=== PATIENT | male | born 1955 | race Caucasian/White ===

== ENCOUNTER 2018-04-14 10:35 | Emergency (ER) | payer BC ==
[2018-04-14] MEDS ORDERED: Sodium Chloride 0.9% 10 ML Syringe FLUSH PRN (11:06)
--- NOTE | 2018-04-14 20:23 | EDM.PDOC ---
ED HPI GENERAL MEDICAL PROBLEM - General Chief Complaint: General Stated Complaint: Clot in Urine Time Seen by Provider: 04/14/18 10:45 Source of Information: Reports: Patient, Family History Limitations: Reports: No Limitations - History of Present Illness INITIAL COMMENTS - FREE TEXT/NARRATIVE: Patient is a 62 year old man status post lung resection in right upper lung in 1998 in [place], [place] for a lung cancer. He has had no recurrence and he stopped smoking then. In the past week he has had blood in his urine and today he passed a clot which has scared him a lot. He came to the ED very anxious and hyperventilating. He has a little left neck and shoulder pain but no other pain and no dysuria. No fever or chills and no abdominal pain. He has been told that he may have kidney stones. No other complaints. Duration: Week(s): (1), Getting Worse Location: Reports: Abdomen Quality: Reports: Same as Previous Episode Severity: Moderate Improves with: Reports: None Worsens with: Reports: None Context: Reports: Other (Kidney stone history.) Associated Symptoms: Reports: No Other Symptoms Neck Pain Pain Score (Numeric/FACES): 4 - Related Data Allergies Allergy/AdvReac Type Severity Reaction Status Date / Time No Known Allergies Allergy Verified 04/14/18 10:45 Home Meds: Home Meds Hydrochlorothiazide 25 mg PO DAILY 04/14/18 [History] Lisinopril [Prinivil] 40 mg PO DAILY 04/14/18 [History] Past Medical History Cardiovascular History: Reports: Hypertension Musculoskeletal History: Reports: Fracture Oncologic (Cancer) History: Reports: Lung - Past Surgical History Oncologic Surgical History: Reports: Lobectomy Social & Family History - Tobacco Use Smoking Status *Q: Former Smoker Years of Tobacco use: 20 Packs/Tins Daily: 0.5 Used Tobacco, but Quit: Yes Month/Year Tobacco Last Used: 1998 - Recreational Drug Use Recreational Drug Use: No ED ROS GENERAL - Review of Systems Review Of Systems: See Below Constitutional: Reports: Other (Anxious and hyperventilating.) HEENT: Reports: No Symptoms Respiratory: Reports: No Symptoms Cardiovascular: Reports: No Symptoms Endocrine: Reports: No Symptoms GI/Abdominal: Reports: No Symptoms : Reports: Hematuria Musculoskeletal: Reports: Neck Pain Skin: Reports: No Symptoms Neurological: Reports: No Symptoms Psychiatric: Reports: No Symptoms Hematologic/Lymphatic: Reports: No Symptoms Immunologic: Reports: No Symptoms ED EXAM, GENERAL - Physical Exam Exam: See Below Exam Limited By: No Limitations General Appearance: Alert, WD/WN, No Apparent Distress Eye Exam: Bilateral Eye: EOMI, Normal Fundi, Normal Inspection, PERRL Ears: Normal External Exam, Normal Canal, Hearing Grossly Normal, Normal TMs Ear Exam: Bilateral Ear: Auricle Normal, Canal Normal, TM normal Nose: Normal Inspection, Normal Mucosa, No Blood Throat/Mouth: Normal Inspection, Normal Lips, Normal Teeth, Normal Gums, Normal Oropharynx, Normal Voice, No Airway Compromise Head: Atraumatic, Normocephalic Neck: Normal Inspection, Supple, Non-Tender, Full Range of Motion Respiratory/Chest: No Respiratory Distress, Lungs Clear, Normal Breath Sounds, No Accessory Muscle Use, Chest Non-Tender Cardiovascular: Normal Peripheral Pulses, Regular Rate, Rhythm, No Edema, No Gallop, No JVD, No Murmur, No Rub GI/Abdominal: Normal Bowel Sounds, Soft, Non-Tender, No Organomegaly, No Distention, No Abnormal Bruit, No Mass (Male) Exam: Deferred Back Exam: Normal Inspection, Full Range of Motion, NT Extremities: Normal Inspection, Normal Range of Motion, Non-Tender, Normal Capillary Refill, No Pedal Edema Neurological: Alert, Oriented, CN II-XII Intact, Normal Cognition, Normal Gait, Normal Reflexes, No Motor/Sensory Deficits Psychiatric: Anxious Skin Exam: Warm, Dry, Intact, Normal Color, No Rash Lymphatic: No Adenopathy EKG INTERPRETATION EKG Date: 04/14/18 Rhythm: NSR [place]: Normal P-Wave: Present QRS: Normal ST-T: Normal QT: Normal Comparison: NA - No Prior EKG Course - Vital Signs Text/Narrative:: His CT of the Abdomen and Pelvis showed a 3.5 cm bladder wall mass consistent with a bladder cancer. He will see [facility] on Monday per Dr. Kirkpatrick the Urologist cable television technician. A cystoscopy and biopsy or removal will be done at that time. He will push fluids and cranberry juice and will return the to ED if needed before going to [facility]. He will continue his other medication. Last Recorded V/S: Last Vital Signs Temp 36.0 C 04/14/18 10:38 Pulse 82 04/14/18 14:00 Resp 18 04/14/18 14:00 BP 143/81 H 04/14/18 14:00 Pulse Ox 98 04/14/18 14:00 - Orders/Labs/Meds Orders: Active Orders 24 hr Category Date Time Status EKG Documentation Completion [RC] ASDIRECTED Care 04/14/18 11:02 Active Abdomen Pelvis wo Cont [CT] Stat Exams 04/14/18 11:05 Taken CXR [Chest 1V Frontal] [CR] Stat Exams 04/14/18 11:04 Taken UA W/MICROSCOPIC [URIN] Stat Lab 04/14/18 11:21 Ordered Saline Lock Insert [OM.PC] Routine Oth 04/14/18 11:06 Ordered Labs: Laboratory Tests 04/14/18 04/14/18 04/14/18 Range/Units 11:10 11:10 11:10 WBC 8.5 (4.0-11.0) K/uL RBC 4.91 (4.50-6.50) M/uL Hgb 14.3 (13.0-18.0) g/dL Hct 39.5 L (40.0-54.0) % MCV 80 (76-96) fL MCH 29.1 (27.0-32.0) pg MCHC 36.2 H (31.0-35.0) g/dL RDW 13.1 (11.0-16.0) % Plt Count 225 (150-400) K/uL MPV 9.6 (6.0-10.0) fL Neut % (Auto) 83.0 H (45.0-70.0) % Lymph % (Auto) 9.9 L (20.0-40.0) % [place] % (Auto) 6.7 (3.0-10.0) % Eos % (Auto) 0.2 L (1.0-5.0) % Baso % (Auto) 0.2 (0.0-0.5) % Neut # (Auto) 7.07 (2.00-7.50) K/uL Lymph # (Auto) 0.84 L (1.50-4.00) K/uL [place] # (Auto) 0.57 (0.20-0.80) K/uL Eos # (Auto) 0.02 L (0.04-0.40) K/uL Baso # (Auto) 0.02 (0.02-0.10) K/uL D-Dimer, Quantitative < 100 (0-400) ng/mL Sodium 138 (136-145) mmol/L Potassium 3.5 (3.5-5.1) mmol/L Chloride 102 (98-107) mmol/L Carbon Dioxide 24.5 (21.0-32.0) mmol/L Anion Gap 15.0 (5.0-15.0) mmol/L BUN 21 (8-26) mg/dL Creatinine 1.12 (0.70-1.30) mg/dL Est Cr Clr Drug Dosing TNP Estimated GFR (MDRD) > 60 (>60) MLS/MIN BUN/Creatinine Ratio 18.8 (6-25) Glucose 109 H (74-100) mg/dL Calcium 9.3 (8.5-10.1) mg/dL Total Bilirubin 0.6 (0.0-1.0) mg/dL AST 18 (15-37) U/L ALT 27 (12-78) U/L Alkaline Phosphatase 80 (46-116) U/L Troponin I (0.000-0.060) ng/mL Total Protein 7.5 (6.4-8.2) g/dL Albumin 4.0 (3.4-5.0) g/dL Globulin 3.5 (2.2-4.2) g/dL Albumin/Globulin Ratio 1.1 (0.8-2.0) Urine Color Urine Appearance (CLEAR) Urine pH (5.0-8.0) Ur Specific [place] (1.003-1.030) Urine Protein (NEGATIVE) mg/dL Urine Glucose (UA) (NEGATIVE) mg/dL Urine Ketones (NEGATIVE) mg/dL Urine Occult Blood (NEGATIVE) Urine Nitrite (NEGATIVE) Urine Bilirubin (NEGATIVE) Urine Urobilinogen (0.2-1.0) E.U./dL Ur Leukocyte Esterase (NEGATIVE) Urine RBC /HPF Urine WBC /HPF Urine WBC Clumps /HPF Ur Renal Epithelial Cell /HPF Urine Bacteria /HPF 04/14/18 04/14/18 Range/Units 11:10 11:21 WBC (4.0-11.0) K/uL RBC (4.50-6.50) M/uL Hgb (13.0-18.0) g/dL Hct (40.0-54.0) % MCV (76-96) fL MCH (27.0-32.0) pg MCHC (31.0-35.0) g/dL RDW (11.0-16.0) % Plt Count (150-400) K/uL MPV (6.0-10.0) fL Neut % (Auto) (45.0-70.0) % Lymph % (Auto) (20.0-40.0) % [place] % (Auto) (3.0-10.0) % Eos % (Auto) (1.0-5.0) % Baso % (Auto) (0.0-0.5) % Neut # (Auto) (2.00-7.50) K/uL Lymph # (Auto) (1.50-4.00) K/uL [place] # (Auto) (0.20-0.80) K/uL Eos # (Auto) (0.04-0.40) K/uL Baso # (Auto) (0.02-0.10) K/uL D-Dimer, Quantitative (0-400) ng/mL Sodium (136-145) mmol/L Potassium (3.5-5.1) mmol/L Chloride (98-107) mmol/L Carbon Dioxide (21.0-32.0) mmol/L Anion Gap (5.0-15.0) mmol/L BUN (8-26) mg/dL Creatinine (0.70-1.30) mg/dL Est Cr Clr Drug Dosing Estimated GFR (MDRD) (>60) MLS/MIN BUN/Creatinine Ratio (6-25) Glucose (74-100) mg/dL Calcium (8.5-10.1) mg/dL Total Bilirubin (0.0-1.0) mg/dL AST (15-37) U/L ALT (12-78) U/L Alkaline Phosphatase (46-116) U/L Troponin I < 0.017 (0.000-0.060) ng/mL Total Protein (6.4-8.2) g/dL Albumin (3.4-5.0) g/dL Globulin (2.2-4.2) g/dL Albumin/Globulin Ratio (0.8-2.0) Urine Color Red Urine Appearance Cloudy (CLEAR) Urine pH 7.5 (5.0-8.0) Ur Specific [place] 1.015 (1.003-1.030) Urine Protein >=300 H (NEGATIVE) mg/dL Urine Glucose (UA) Negative (NEGATIVE) mg/dL Urine Ketones Negative (NEGATIVE) mg/dL Urine Occult Blood Large H (NEGATIVE) Urine Nitrite Negative (NEGATIVE) Urine Bilirubin Negative (NEGATIVE) Urine Urobilinogen 0.2 (0.2-1.0) E.U./dL Ur Leukocyte Esterase Trace H (NEGATIVE) Urine RBC Packed H /HPF Urine WBC 5-10 H /HPF Urine WBC Clumps Few /HPF Ur Renal Epithelial Cell Rare /HPF Urine Bacteria Few /HPF Meds: Medications Discontinued Medications Generic Name Dose Route Start Last Admin Trade Name Freq PRN Reason Stop Dose Admin Sodium Chloride 10 ml 04/14/18 11:06 Saline Flush FLUSH ASDIRECTED PRN Keep Vein Open Departure - Departure Time of Disposition: 14:45 Disposition: Home, Self-Care 01 Condition: Good Clinical Impression: Mass of bladder, Hematuria - Discharge Information Referrals: PCP,None [Primary Care Provider] - Forms: ED Department Discharge Additional Instructions: Call [facility] to get an appointment set up. Phone number is . Dr. Moreno spoke with Dr. Figueroa in urology. Avoid Aspirin. Take it easy until you see Urology. - My Orders Last 24 Hours: My Active Orders 04/14/18 11:02 EKG Documentation Completion [RC] ASDIRECTED 04/14/18 11:04 CXR [Chest 1V Frontal] [CR] Stat 04/14/18 11:05 Abdomen Pelvis wo Cont [CT] Stat 04/14/18 11:06 Saline Lock Insert [OM.PC] Routine 04/14/18 11:21 UA W/MICROSCOPIC [URIN] Stat - Assessment/Plan Last 24 Hours: My Active Orders 04/14/18 11:02 EKG Documentation Completion [RC] ASDIRECTED 04/14/18 11:04 CXR [Chest 1V Frontal] [CR] Stat 04/14/18 11:05 Abdomen Pelvis wo Cont [CT] Stat 04/14/18 11:06 Saline Lock Insert [OM.PC] Routine 04/14/18 11:21 UA W/MICROSCOPIC [URIN] Stat
--- NOTE | 2018-04-15 18:00 | CR ---
DATE OF SERVICE: 04/14/2018 CLINICAL DATA: Upper shoulder and back pain with hyperventilation. AP PORTABLE CHEST: No priors. The heart size is normal. There is calcification at the aortic arch. There is eventration of the right hemidiaphragm. There are surgical ilsa overlying the right hilum. The lungs are clear. No pneumothorax. No pleural effusions. No evidence of acute intrathoracic disease. [id number] MTDD
--- NOTE | 2018-04-15 19:11 | CT ---
DATE OF SERVICE: 04/14/2018 CLINICAL DATA: Hematuria and told he has kidney stones.. UNENHANCED ABDOMEN AND PELVIC CT: Multislice axial acquisition through the abdomen and pelvis without IV or oral contrast was performed. Breathing motion artifact degrades image quality. No priors. There are mild atelectatic changes in the dependent portion of both lower lungs. The lung bases are otherwise clear. The liver is normal size. There are multiple sharply transcribed bone density lesions within the liver most likely representing cysts. No other focal hepatic lesions. The gallbladder is contracted. The spleen appears normal. The pancreas appears normal. The right and left adrenals appear normal. The right and left kidneys appear normal. No nephrocalcinosis or nephrolithiasis. No hydronephrosis or hydroureter. The bladder is abnormal. There is a mucosal based mass within bladder on the left. It measures 3.9 cm in its maximum axial dimension. The prostate is grossly enlarged. The appendix is not dilated. No evidence of appendicitis. There is a moderate amount of stool present throughout the colon. No free air. No free fluid. No dilated loops of bowel. No adenopathy. 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 There is an umbilical hernia containing fat. IMPRESSION: 3.7 cm mucosal based mass left bladder. Bladder malignancy is suspected. Urology consultation is recommended. Other findings as discussed above. [id number] [facility]
== END 2018-04-14 14:49 | disposition home or self-care (01) ==
LOC: LB.ED 10:35
DX: N32.9 Bladder disorder, unspecified (principal); R31.9 Hematuria, unspecified; I10 Essential (primary) hypertension; Z87.891 Personal history of nicotine dependence; Z79.899 Other long term (current) drug therapy
CPT/HCPCS: 36415; 71045; 74176; 80053; 81001; 84484; 85025; 85379; 93005; 99284-25